=== PATIENT | male | born 1950 | race Caucasian/White ===

== ENCOUNTER 2022-02-25 10:55 | Outpatient (REF) | payer MEDICARE, OTHER, SELFPAY ==
--- NOTE | ~2022-02-25 | XR_ITS ---
EXAMINATION: XR FOOT, LEFT CLINICAL INFORMATION: Localize edema. COMPARISON: None TECHNIQUE: AP, lateral, and oblique views of the left foot. FINDINGS: Moderate to severe osteoarthrosis at the first MTP joint and mild osteoarthrosis of the DIP joint of the second, fourth and fifth toes. Hukyz-[id number]-[id number]-sized posterior plantar calcaneal spur. No radiographic evidence of any displaced fracture, subluxation or dislocation or radiopaque foreign body. XR/XR foot LT min 3V IMPRESSION: 1. Moderate to severe osteoarthrosis at the first MTP joint and mild osteoarthrosis of the DIP joints of the second, fourth and fifth toes. 2. Small to moderate-sized posterior plantar calcaneal spur.
== END 2022-02-25 10:56 | disposition home or self-care (01) ==
LOC: HO.HMGCX 10:55
PROVIDERS: PCP Internal Medicine; Visit Provider Physician Assistant Medical
DX: R60.0 Localized edema (principal)
CPT/HCPCS: 73630